=== PATIENT | female | born 2000 | race Two or more races ===

== ENCOUNTER 2024-03-24 00:13 | Inpatient (IN) | payer OTHER ==
[~2024-03-24] VITALS: Ht 157.5 cm; Wt 64.0 kg
[~2024-03-24 00:13] MED LIST: CALCIUM CARBONATE 500 MG CHEW PO PRN; LACTATED RINGER'S 1,000 ML IV SCH; MAGNESIUM HYDROXIDE/AL HYDROX 30 ML CUP PO PRN; miSOPROStoL 25 MCG TAB PV SCH
[2024-03-24] MEDS ORDERED: OXYTOCIN/DEXTROSE 5% 20 UNITS/100 ML BAG IV SCH (00:30)
[2024-03-24 00:46] LABS: HEMATOCRIT 32.8 % (35.0-50.0); MCH 28.2 (27-36); MCHC 33.6 g/dl (30-36); MCV 83.9 fl (81-99); RBC 3.91 M/ul (4.3-5.7); RDW 14.7 (10.5-15.0)
[2024-03-24 00:58] LABS: AMPHETAMINES, URINE NEGATIVE (NEGATIVE); BARBITURATES, URINE NEGATIVE (NEGATIVE); BENZODIAZEPINE, URINE NEGATIVE (NEGATIVE); BUPRENORPHINE, URINE NEGATIVE (NEGATIVE); CANNABINOID, URINE NEGATIVE (NEGATIVE); COCAINE, URINE NEGATIVE (NEGATIVE); ECSTASY, URINE NEGATIVE (NEGATIVE); FENTANYL, URINE NEGATIVE (NEGATIVE); METHADONE, URINE NEGATIVE (NEGATIVE); OPIATES, URINE NEGATIVE (NEGATIVE); OXYCODONE, URINE NEGATIVE (NEGATIVE); PHENCYCLIDINE, URINE NEGATIVE (NEGATIVE)
[2024-03-24 01:23] LABS: ABO O; ANTIBODY SCREEN NEGATIVE; RH POSITIVE
[2024-03-24] MEDS ORDERED: ePHEDrine sulfate 50 MG/ML AMP ONE (10:31)
[2024-03-24] MEDS ORDERED: ROPIVACAINE 0.2% 200 ML BAG ONE (10:31)
[2024-03-24] MEDS ORDERED: ondansetron HCL 4 MG/2 ML VIAL ONE (10:31)
[2024-03-24] MEDS ORDERED: LIDOCAINE HCL 2% 5 ML SDV ONE (10:31)
[2024-03-24] MEDS ORDERED: BUPIVACAINE HCL 0.25% 10 ML SDV INJ ONE (10:31)
[2024-03-24] MEDS ORDERED: OXYTOCIN/0.9 % SODIUM CHLORIDE 500 ML IV SCH (10:45)
[2024-03-24] MEDS ORDERED: LACTATED RINGER'S 500 ML IV PRN (11:15)
[2024-03-24] MEDS ORDERED: ePHEDrine sulfate 5 MG/ML SYRINGE IV PRN (11:15)
[2024-03-24] MEDS ORDERED: ROPIVACAINE 0.2% 200 ML BAG EPIDURAL SCH ×2 (11:15)
[2024-03-24] MEDS ORDERED: LACTATED RINGER'S 2,000 ML IV ONE (11:15)
--- NOTE | 2024-03-24 15:02 | PR ---
[facility] [address] [place], [place] [address] Signed Progress Notes IP Datetime Report Generated by JOSE LUIS: 03/24/2024 15:02 PROGRESS NOTES: [id number] Impression: Normal Progression of Labor Procedures: Sterile Vag Exam Plan: Continue Present Management; Induction; Cervical Ripening Informed Consent Obtain: Vaginal Delivery VITAL SIGNS: [id number] Vital Signs: Reviewed; Within Normal Limits EXAM: [id number] Dilatation: 4.0 Effacement: 70 Station: -3 Contractions: q 1-3 min MEMBRANES: [id number] Membranes Status: Intact Comments: S: Patient resting comfortably in bed. S/P epidural placement. No concerns or complaints. SVE: 4/70 FHT: q 1-3 min A/P: Patient well. Cook balloon still in place. Continue induction with pitocin and Cook balloon. Recheck in 2-4 hours and sooner as needed. FETUS A: [id number] FHR Baseline: 130 Variability: Moderate 6-25bpm Decelerations: Variable FHR Category: Category II Presentation: Vertex Comments on Fetus A: No evidence of metabolic acidosis FETUS B: [id number] Signing Physician: Myla Moar MD Copies: ~ *Electronically Signed* 03/24/24 1502 MYLA MORA MD PATIENT NAME: KIMBERLY CISNEROS PROGRESS NOTE DATE OF : 00 PHYSICIAN: MYLA MORA MD RPT #: [id number] REPORT IS CONFIDENTIAL AND NOT TO BE RELEASED WITHOUT AUTHORIZATION
--- NOTE | 2024-03-24 17:20 | PR ---
[facility] [address] [place], [place] [address] Signed Progress Notes IP Datetime Report Generated by CPMelanie: 03/24/2024 17:20 PROGRESS NOTES: [id number] Impression: Normal Progression of Labor Procedures: Artificial ROM; Intrauterine Pressure Catheter; Scalp Electrode; Sterile Vag Exam Plan: Continue Present Management Informed Consent Obtain: Vaginal Delivery VITAL SIGNS: [id number] Vital Signs: Reviewed; Within Normal Limits EXAM: [id number] Dilatation: 5.5 Effacement: 70 Station: -3 Contractions: q 1-3 min MEMBRANES: [id number] Membranes Status: Intact Comments: S: Patient resting comfortably in bed. S/P epidural placement. No concerns or complaints. SVE: 4/70 FHT: q 1-3 min A/P: Patient well. Cook balloon still in place. Continue induction with pitocin and Cook balloon. Recheck in 2-4 hours and sooner as needed. FETUS A: [id number] FHR Baseline: 130 Variability: Moderate 6-25bpm Decelerations: None FHR Category: Category II Presentation: Vertex Comments on Fetus A: No evidence of metabolic acidosis FETUS B: [id number] Signing Physician: Marcos Zheng MD Copies: ~ *Electronically Signed* 03/24/24 3911 MARCOS ZHENG MD PATIENT NAME: CARLOS CROOKSKIMBERLY GRIFFITH PROGRESS NOTE DATE OF : 00 PHYSICIAN: MARCOS ZHENG MD RPT #: [id number] REPORT IS CONFIDENTIAL AND NOT TO BE RELEASED WITHOUT AUTHORIZATION
[2024-03-24] MEDS ORDERED: Ropivacaine HCl 0.5% 30 ML VIAL ONE (20:25)
[2024-03-24] MEDS ORDERED: dexmedeTOMIDine HCl 200 MCG/2 ML VIAL ONE (20:26)
[2024-03-24] MEDS ORDERED: NEOSTIGMINE METHYLSULFATE 1 MG/ML ONE (20:26)
--- NOTE | 2024-03-24 20:35 | PR ---
[facility] [address] [facility] [place] [address] Signed Progress Notes IP Datetime Report Generated by CPN: 03/24/2024 20:35 PROGRESS NOTES: [id number] Impression: Normal Progression of Labor Procedures: Sterile Vag Exam Plan: Continue Present Management; Augmentation Informed Consent Obtain: Vaginal Delivery VITAL SIGNS: [id number] Vital Signs: Reviewed; Within Normal Limits EXAM: [id number] Dilatation: 6.5 Effacement: 70 Station: -3 Contractions: Q 1-3 min MEMBRANES: [id number] Membranes Status: Ruptured Comments: S: Patient well. Lying in bed. Feeling more discomfort from contractions. O: AFVSS A/P: Patient well. Will continue with labor management and pitocin augmentation. Recheck in 2 hours and sooner as needed. FETUS A: [id number] FHR Baseline: 130 Variability: Moderate 6-25bpm Decelerations: Late FHR Category: Category II Presentation: Vertex Comments on Fetus A: No evidence of metabolic acidosis FETUS B: [id number] Signing Physician: Myla Mora MD Copies: ~ *Electronically Signed* 03/24/242034 MYLA MORA MD PATIENT NAME: KIMBERLY CISNEROS PROGRESS NOTE DATE OF : 00 PHYSICIAN: MYLA MORA MD RPT #: [id number] REPORT IS CONFIDENTIAL AND NOT TO BE RELEASED WITHOUT AUTHORIZATION
--- NOTE | 2024-03-24 21:21 | PR ---
[facility] [address] [facility] [place], [place] [address] Signed Progress Notes IP Datetime Report Generated by CPN: 03/24/2024 21:21 PROGRESS NOTES: [id number] Impression: Normal Progression of Labor Procedures: Sterile Vag Exam Plan: Continue Present Management Informed Consent Obtain: Vaginal Delivery VITAL SIGNS: [id number] Vital Signs: Reviewed; Within Normal Limits EXAM: [id number] Dilatation: 10.0 Effacement: 90 Station: -1 Contractions: Q 1-2 min MEMBRANES: [id number] Membranes Status: Ruptured Comments: S: Patient well. Feeling more pressure. O: AFVSS A/P: Patient well. Now complete. Dr. Raygoza aware. Will start pushing shortly. Anticipate vaginal delivery. FETUS A: [id number] FHR Baseline: 130 Variability: Moderate 6-25bpm Decelerations: Variable FHR Category: Category II Presentation: Vertex Comments on Fetus A: No evidence of metabolic acidosis FETUS B: [id number] Signing Physician: Myla Zheng MD Copies: ~ *Electronically Signed* 03/24/242120 MYLA ZHENG MD PATIENT NAME: GONZALEZ EVANS,KIMBERLY PROGRESS NOTE DATE OF : 00 PHYSICIAN: MYLA ZHENG MD RPT #: [id number] REPORT IS CONFIDENTIAL AND NOT TO BE RELEASED WITHOUT AUTHORIZATION
[2024-03-25] MEDS ORDERED: MAGNESIUM HYDROXIDE/AL HYDROX 30 ML CUP PO PRN (05:30)
[2024-03-25] MEDS ORDERED: WITCH HAZEL/GLYCERIN 1 EA PAD TOP PRN (05:30)
[2024-03-25] MEDS ORDERED: IBUPROFEN 600 MG TAB PO PRN ×2 (05:30→05:45)
[2024-03-25] MEDS ORDERED: CALCIUM CARBONATE 500 MG CHEW PO PRN (05:30)
[2024-03-25] MEDS ORDERED: HYDROCORTISONE ACETATE 25 MG SUPP PR PRN (05:30)
[2024-03-25] MEDS ORDERED: BENZOCAINE 60 ML AEROSOL TOP PRN (05:30)
[2024-03-25] MEDS ORDERED: ACETAMINOPHEN 325 MG TAB PO PRN (05:30)
[2024-03-25] MEDS ORDERED: MAGNESIUM HYDROXIDE 30 ML UDC PO PRN (05:30)
[2024-03-25 06:05] LABS: HEMATOCRIT 29.6 % (35.0-50.0); HEMOGLOBIN 9.9 g/dL (12.0-18.0); MCH 28.3 (27-36); MCHC 33.5 g/dl (30-36); MCV 84.3 fl (81-99); RBC 3.51 M/ul (4.3-5.7); RDW 14.6 (10.5-15.0)
[2024-03-25] MEDS ORDERED: SENNOSIDES/DOCUSATE 1 EA TAB PO SCH (09:00)
--- NOTE | 2024-03-25 10:13 | PR ---
[facility] [address] [place], [place] [address] Signed PP Progress Notes Datetime Report Generated by JOSE LUIS: 03/25/2024 10:13 SUBJECTIVE: [id number] Pain: Within Normal Limits Nausea/Vomiting: Denies Flatus: Yes Bowel Movement: No Vital Signs: [id number] Vital Signs: Reviewed; Within Normal Limits EXAM: Ongoing Cardiovascular: Not Done Respiratory: Not Done Abdomen/Uterus: Normal Lochia: Normal Vulva/Perineum: Not Done Breasts: Not Done CVA Tenderness: Not Done Extremities: Normal Incision: Not Applicable Progress: Abnormal IMPRESSION/PLAN/PROCEDURES: [id number] Impression: Normal Progression Plan: Continue Present Management Procedures: None Progress Notes: S: 23 yo s/p vaginal delivery. PPD#1. Doing well. Denies HERNANDEZ, CP, SOB, F/C, N/V, RUQ pain, changes in vision, vaginal discharge. Tolerating regular diet, ambulating, voiding on own, pain moderately controlled. Having some challenges with breast feeding in terms of latching, nipple discomfort and uterine cramping. No other concerns or complaints. O: AFVSS Abd: Soft. Non distended. Non tender. Funuds firm and below umbilicus. Musc: SHAH. No C/C/E. A/P: 23 yo s/p vaginal delivery. PPD#1. Doing well. Will continued care. Work on today. Likely discharge home tomorrow AM. Signing Physician: Myla Zheng MD *Electronically Signed* 05/29/24 1013 MYLA ZHENG MD PATIENT NAME: KIMBERLY CISNEROS PROGRESS NOTE DATE OF : 00 PHYSICIAN: MYLA ZHENG MD RPT #: [id number] REPORT IS CONFIDENTIAL AND NOT TO BE RELEASED WITHOUT AUTHORIZATION
[2024-03-25] MEDS ORDERED: HYDROCODONE/ACETA 5/325 TAB PO PRN (10:15)
--- NOTE | 2024-03-26 08:32 | PR ---
[facility] [address] [place], [place] [address] Signed PP Progress Notes Datetime Report Generated by CPN: 03/26/2024 08:32 SUBJECTIVE: [id number] Pain: Within Normal Limits Nausea/Vomiting: Denies Flatus: Yes Bowel Movement: Yes Vital Signs: [id number] Vital Signs: Reviewed; Within Normal Limits EXAM: Ongoing Cardiovascular: Not Done Respiratory: Not Done Abdomen/Uterus: Normal Lochia: Normal Vulva/Perineum: Not Done Breasts: Not Done CVA Tenderness: Not Done Extremities: Normal Incision: Not Applicable Progress: Normal IMPRESSION/PLAN/PROCEDURES: [id number] Impression: Normal Progression Plan: Discharge Procedures: None Progress Notes: S: 23 yo s/p vaginal delivery. PPD#2. Doing well. Denies HERNANDEZ, CP, SOB, F/C, N/V, RUQ pain, changes in vision, vaginal discharge. Tolerating regular diet, ambulating, voiding on own, pain controlled. No concerns or complaints. O: AFVSS Abd: Soft. Non-tender. Fundus firm and below umbilicus. Musc: SHAH. No C/C/E. A/P:23 yo s/p vaginal delivery. PPD#2. Doing well. Patient meeting all hospital milestones. Will discharge home today. Signing Physician: Myla Zheng MD *Electronically Signed* 03/26/24 0832 MYLA ZHENG MD PATIENT NAME: GONZALEZ EVANSKIMBERLY GRIFFITH PROGRESS NOTE DATE OF : 00 PHYSICIAN: MYLA ZHENG MD RPT #: [id number] REPORT IS CONFIDENTIAL AND NOT TO BE RELEASED WITHOUT AUTHORIZATION
== END 2024-03-26 14:15 | disposition home or self-care (01) | DRG 807 ==
LOC: FBC 00:13
PROVIDERS: ADMIT Obstetrics & Gynecology; ATTEND Obstetrics & Gynecology
PROC: 10E0XZZ Delivery of Products of Conception, External Approach (ICD-10-PCS; principal; 2024-03-24)
PROC: 3E0R3BZ Introduction of Anesthetic Agent into Spinal Canal, Percutaneous Approach (ICD-10-PCS; 2024-03-24)
PROC: 00HU33Z Insertion of Infusion Device into Spinal Canal, Percutaneous Approach (ICD-10-PCS; 2024-03-24)
PROC: 10907ZC Drainage of Amniotic Fluid, Therapeutic from Products of Conception, Via Natural or Artificial Opening (ICD-10-PCS; 2024-03-24)
DX: O36.5930 Maternal care for other known or suspected poor fetal growth, third trimester, not applicable or unspecified (principal); Z37.0 Single live birth; Z3A.39 39 weeks gestation of pregnancy; O69.81X0 Labor and delivery complicated by cord around neck, without compression, not applicable or unspecified; O99.02 Anemia complicating childbirth
CPT/HCPCS: 01960; 36415; 80307; 85027; 86850; 86900; 86901; A9270; J2001; J2405; J2590; J2710; J2795; J7121